=== PATIENT | female | born 1975 | race Hispanic/Latino ===

== ENCOUNTER 2024-01-26 12:40 | Emergency (ER) | payer OTHER ==
--- NOTE | 2024-01-26 13:15 | ER ---
Nurse's Notes [facility] Name: Roxi Beavers Age: 49 yrs Sex: Female : 1975 Arrival Date: 01/26/2024 Time: 12:40 Bed 11 Private MD: Diagnosis: Dental caries, unspecified;Dental infection;Acute gingivitis Presentation: 01/25 12:46 Chief complaint: Patient states: toothache to the right side that's radiating to her kc6 ear. states her dentist told her to take some antibiotics but they're not helping. Coronavirus screen: At this time, the client does not indicate any symptoms associated with coronavirus-19. Ebola Screen: No symptoms or risks identified at this time. Initial Sepsis Screen: Does the patient meet any 2 criteria? No. Patient's initial sepsis screen is negative. Does the patient have a suspected source of infection? No. Patient's initial sepsis screen is negative. Risk Assessment: Do you want to hurt yourself or someone else? Patient reports no desire to harm self or others. Onset of symptoms was January 26, 2024. 12:46 Method Of Arrival: Ambulatory [facility] 12:46 Acuity: THIERRY 4 [facility] Triage Assessment: 12:50 General: Appears uncomfortable, Behavior is calm, cooperative, appropriate for age. ll1 Pain: Complains of pain in R lower jaw Quality of pain is described as aching, throbbing. EENT: Reports pain in right ear. Neuro: No deficits noted. 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 - Infectious Disease History:: Denies. - Social history:: Smoking status: Patient denies any tobacco usage or history of. Screenin:22 [facility] ED Fall Risk Assessment (Adult) History of falling in the last 3 months, ll1 including since admission No falls in past 3 months (0 pts) Confusion or Disorientation No (0 pts) Intoxicated or Sedated No (0 pts) Impaired Gait No (0 pts) Mobility Assist Device Used No (0 pt) Altered Elimination No (0 pt) Score/Fall Risk Level 0 - 2 = Low Risk Maintained a safe environment, Hourly rounding (assess needs \T\ fall precautionary measures) done. Abuse screen: Denies threats or abuse. Nutritional screening: No deficits noted. Tuberculosis screening: No symptoms or risk factors identified. Assessment: 13:22 Reassessment: No changes from previously documented assessment. Patient and/or family ll1 updated on plan of care and expected duration. Pain level reassessed. Patient is alert, oriented x 3, equal unlabored respirations, skin warm/dry/pink. Vital Signs: 12:46 BP 116 / 87; Pulse 89; Resp 17 S; Temp 98.3(O); Pulse Ox 96% on R/A; Weight 68.04 kg kc6 (R); Height 5 ft. 3 in. (R); Pain 7/10; 12:46 Body Mass Index 26.57 (68.04 kg, 160.02 cm) kc6 12:46 Pain Scale: Adult kc6 ED Course: 12:45 Patient arrived in ED. mg5 12:49 Triage completed. kc6 12:49 Arm band placed on. kc6 12:50 Abe Richey DO is Attending Physician. ms3 13:13 Jean Babb DDS is Referral Physician. ms3 13:22 Rudy Ramirez, NANCY is Primary Nurse. ll1 13:22 No provider procedures requiring assistance completed. Patient did not have IV access ll1 during this emergency room visit. 14:01 Patient has correct armband on for positive identification. Call light in reach. ll1 Provided Education on: finish all prescribed antibiotics. Cardiac monitoring not applicable on this patient. Administered Medications: No medications were administered Medication: 13:22 VIS not applicable for this client. ll1 Outcome: 13:15 Discharge ordered by MD. ms3 13:22 Patient left the ED. ll1 13:22 Discharged to home ambulatory, ll1 13:22 Condition: stable 13:22 Discharge instructions given to patient, Instructed on discharge instructions, follow up and referral plans. medication usage, Demonstrated understanding of instructions, follow-up care, medications, Prescriptions given X 1, Signatures: Rudy Ramirez RN RN ll1 Abe Richey DO DO ms3 Bernarda Oliva RN RN kc6 Nguyen Wesley mg5
--- NOTE | 2024-01-26 13:15 | EDPHYS ---
Physician Documentation [facility] Name: Roxi Beavers Age: 49 yrs Sex: Female : 1975 Arrival Date: 01/26/2024 Time: 12:40 Bed 11 Private MD: ED Physician Abe Richey HPI: 01/25 13:18 This 49 yrs old Female presents to ER via Ambulatory with complaints of ms3 Toothache. 13:18 49-year-old female with no past medical history presents to the emergency department ms3 for right lower tooth pain. Patient rates the pain a 4/10. Patient states she has had the dental pain for 2 days. Patient has been taking her Augmentin 875 mg twice daily since yesterday that she had from last year. Patient states she took Tylenol 1 hour prior to arrival with relief of her pain.. 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 - Infectious Disease History:: Denies. - Social history:: Smoking status: Patient denies any tobacco usage or history of. ROS: 13:18 Constitutional: Negative for fever, and chills. Cardiovascular: Negative for chest ms3 pain, and palpitations. Respiratory: Negative for shortness of breath, cough, wheezing, and pleuritic chest pain, Abdomen/GI: Negative for abdominal pain, nausea, vomiting, diarrhea, and constipation, Skin: Negative for injury, rash, and discoloration, 13:18 ENT: Positive for dental pain, Exam: 13:18 Constitutional: This is a well developed, well nourished patient who is awake, alert, ms3 and in no acute distress. Head/Face: Normocephalic, atraumatic. Neck: Trachea midline, no cervical lymphadenopathy. Supple, full range of motion without nuchal rigidity, or vertebral point tenderness. No Meningismus. Chest/axilla: Normal chest wall appearance and motion. Nontender with no deformity. Cardiovascular: Regular rate and rhythm with a normal S1 and S2. No gallops, murmurs, or rubs. Normal PMI, no JVD. No pulse deficits. Respiratory: Lungs have equal breath sounds bilaterally, clear to auscultation and percussion. No rales, rhonchi or wheezes noted. No increased work of breathing, no retractions or nasal flaring. Abdomen/GI: Soft, non-tender, with normal bowel sounds. No distension or tympany. No guarding or rebound. No evidence of tenderness throughout. Skin: Warm, dry with normal turgor. Normal color with no rashes, no lesions, and no evidence of cellulitis. MS/ Extremity: Pulses equal, no cyanosis. Neurovascular intact. Full, normal range of motion. 13:18 ENT: Mouth: Gums: reddened, swollen, on the lower left cuspid, lower left lateral incisor, lower left central incisor, lower right central incisor, lower right lateral incisor, lower right cuspid, lower right first bicuspid, lower right second bicuspid, lower right first molar, lower right second molar and lower right third molar, Dental exam: dental caries, that is moderate, specifically in the lower right first molar (#30), Vital Signs: 12:46 BP 116 / 87; Pulse 89; Resp 17 S; Temp 98.3(O); Pulse Ox 96% on R/A; Weight 68.04 kg kc6 (R); Height 5 ft. 3 in. (R); Pain 7/10; 12:46 Body Mass Index 26.57 (68.04 kg, 160.02 cm) kc6 12:46 Pain Scale: Adult kc6 MDM: 13:10 Patient medically screened. ms3 13:18 Differential diagnosis: dental caries, gingivitis, dental abscess. Data reviewed: vital ms3 signs, nurses notes, and as a result, I will discharge patient. I considered the following discharge prescriptions or medication management in the emergency department See Rx. Counseling: I had a detailed discussion with the patient and/or guardian regarding the historical points, exam findings, and any diagnostic results supporting the discharge/admit diagnosis, the need for outpatient follow up, to return to the emergency department if symptoms worsen or persist or if there are any questions or concerns that arise at home. ED course: Discussed physical exam findings with patient. Patient to follow-up with Dr. Babb in 2 to 3 days. Patient understands/agrees with plan. All questions were answered. Return precautions discussed include worsening symptoms, or any other concerns. No signs of Ludewig's angina present. Administered Medications: No medications were administered Disposition Summary: 01/26/24 13:15 Discharge Ordered Notes: Location: Home ms3 Condition: Stable ms3 Diagnosis - Dental caries, unspecified ms3 - Dental infection ms3 - Acute gingivitis ms3 Followup: ms3 - With: Jean Babb DDS - When: 2 - 3 days - Reason: Recheck today's complaints Discharge Instructions: - Discharge Summary Sheet ll1 - Dental Caries, Adult ms3 - Dental Pain ms3 Forms: - Work release form ll1 - Medication Reconciliation Form ms3 - Antibiotic Education ms3 - Prescription Opioid Use ms3 - Patient Portal Instructions ms3 - Leadership Thank You Letter ms3 Prescriptions: - Augmentin 875-125 mg Oral Tablet - take 1 tablet ORAL route every 12 hours for 10 days; 20 tablet; Refills: 0, ms3 Product Selection Permitted Signatures: Abe Richey DO DO ms3 Bernarda Oliva, RN RN kc6
[2024-01-26 13:47] VITALS: BP 116/87; TEMP 98.3; O2SAT 96
== END 2024-01-26 13:22 | disposition home or self-care (01) ==
LOC: ER 12:40
DX: K02.9 Dental caries, unspecified (principal); K04.7 Periapical abscess without sinus; K05.00 Acute gingivitis, plaque induced
CPT/HCPCS: 99283